=== PATIENT | male | born 1995 | race Caucasian/White ===

== ENCOUNTER 2017-07-10 07:49 | Emergency (ER) | payer BC, SELFPAY ==
[2017-07-10 07:51] VITALS: BP 146/86; PULSE 75; RESP 16; TEMP 36.4; O2SAT 100; BMI 19.2
[2017-07-10 08:13] LABS: Basophils % 0.5 % (0.1-2.0); Eosinophils # 0.2 K/mm3 (0.0-0.4); Eosinophils % 2.4 % (0.1-12.0); Hematocrit 48.8 % (42.0-52.0); Hemoglobin 16.1 g/dL (14.1-18.0); Lymphocytes # 2.1 K/mm3 (0.7-4.5); Lymphocytes % 31.7 K/mm3 (10-50); Mean Corpuscular HGB Conc 33.1 g/dL (31.8-35.4); Mean Corpuscular Volume 93.8 fl (80-94); Mean Platelet Volume 8.3 fl (7.4-10.4); Monocytes # 0.5 K/mm3 (0.1-1.0); Monocytes % 7.5 % (1.7-9.3); Neutrophils # 3.8 K/mm3 (1.8-7.8); Neutrophils % 57.9 % (37.0-80.0); Platelet Count 231 K/mm3 (142-424); Red Cell Distribution Width 12.3 % (11.5-17.5); White Blood Count 6.5 K/mm3 (4.8-10.8)
[2017-07-10 08:28] LABS: Alanine Aminotransferase 31 U/L (12-78); Albumin Level 4.3 gm/dL (3.4-5.0); Albumin/Globulin Ratio 1.2 (1.1-1.8); Alkaline Phosphatase 105 U/L (46-116); Amylase 61 U/L (25-125); Anion Gap 12.9 mEq/L (5-15); Aspartate Amino Transferase 24 U/L (15-37); Bilirubin,Total 0.5 mg/dL (0.2-1.0); Blood Urea Nitrogen 10 mg/dL (7-18); Calcium 8.8 mg/dL (8.5-10.1); Carbon Dioxide 29 mmol/L (21.0-32.0); Chloride 102 mmol/L (98-107); Creatinine Clearance Estimated 120 mL/min (0-300); Creatinine,Serum 0.91 mg/dL (0.70-1.30); Estimated Glomerular Filt Rate 102 ml/min (>60); GFR (African American) 124 ML/MIN (>60); Globulin 3.7 gm/dl (1.3-3.2); Glucose 107 mg/dL (74-106); Lipase 85 u/L (73-393); Potassium 3.9 mmoL/L (3.5-5.1); Sodium 140 mmol/L (136-145)
--- NOTE | 2017-07-10 08:49 | HMH.EDNVD ---
ED Disposition Clinical Impression: Gastroenteritis Disposition: Home, Self-Care Condition on Discharge: Good Instructions: DI for Diarrhea and Traveler's Diarrhea -- Adult Additional Instructions: Clear liquids to stay hydrated, Bentyl for cramping, Zofran for any vomiting, see MD of choice from list provided, one to three days, for recheck. Prescriptions: Dicyclomine HCl [Bentyl 10mg capsule] 10 mg PO Q8HP PRN #10 cap PRN Reason: Cramping Ondansetron [Zofran 4mg ODT] 4 mg PO TIDP PRN #10 tab.rapdis PRN Reason: nausea Referrals: Ute Weller APRN [Primary Care Provider] - Wilfredo Garcia MD [Staff Physician] - - Critical Care Critical Care Time: No Attestation: On 07/10/17, the high probability of a clinically significant, sudden or life threatening deterioration of the following system(s) required my full and direct attention, intervention and personal management. The time I documented below is in addition to time spent performing reported procedures but includes the following listed in this critical care notation. Medical Decision Making - [place] Inquiry Pt receiving controlled substance: No Vital Signs: 07/10/17 07:51 Temperature 97.6 F Temperature Source Oral Pulse Rate [Right Radial] 75 Respiratory Rate 16 Blood Pressure [Right Arm] 146/86 Blood Pressure Mean [Right Arm] 106 Blood Pressure Source [Right Arm] Automatic Cuff Blood Pressure Position [Right Arm] Sitting 02 Sat by Pulse Oximetry 100 Oxygen Delivery Method Room Air - Lab Data Lab Results 07/10/17 08:03: WBC 6.5, RBC 5.20, Hgb 16.1, Hct 48.8, MCV 93.8, MCH 31.0, MCHC 33.1, RDW 12.3, Plt Count 231, MPV 8.3, Neut % (Auto) 57.9, Lymph % (Auto) 31.7, [place] % (Auto) 7.5, Eos % (Auto) 2.4, Baso % (Auto) 0.5, Neut # (Auto) 3.8, Lymph # (Auto) 2.1, [place] # (Auto) 0.5, Eos # (Auto) 0.2, Baso # (Auto) 0.0 07/10/17 08:03: Sodium 140, Potassium 3.9, Chloride 102, Carbon Dioxide 29, Anion Gap 12.9, BUN 10, Creatinine 0.91, Estimated Creat Clear 120, Estimated GFR 102, Est GFR ( Amer) 124, Glucose 107 H, Calcium 8.8, Total Bilirubin 0.5, AST 24, ALT 31, Alkaline Phosphatase 105, Total Protein 8.0, Albumin 4.3, Globulin 3.7 H, Albumin/Globulin Ratio 1.2, Amylase 61, Lipase 85 Result diagrams: 07/10/17 08:03 07/10/17 08:03 Orders (Tests/Meds): ED MEDICATIONS Discontinued Medications Generic Name Dose Route Start Last Admin Trade Name Freq PRN Reason Stop Dose Admin Ondansetron HCl 4 mg 07/10/17 08:04 07/10/17 08:06 Zofran 4mg Odt SL 07/10/17 08:05 4 mg ONCE ONE Administration Nausea/Vomiting/Diarrhea HPI - General Chief complaint: Abdominal Pain Stated complaint: stomach pain vomiting diarrhea Time Seen by Provider: 07/10/17 08:15 Mode of Arrival: Ambulatory Limitations: No Limitations Description of Symptoms (Recalled from ER Triage Doc. by RN): n/v/d for three days accompanied by abdominal cramping. reports pain at a 6 or 7 at the most and describes pain as a cramping that in generalized across lower abdomen. denies dark stools or vomitus. - History of Present Illness HPI Narrative: Seen at an outside [facility] three days ago for congestion, Rx for Amoxicillin not filled, but congestion and mild fever are resolved; vomiting resolved; has a little diarrhea, nonbloody; no sick contacts. Taking PO well. No fever now. MD complaint: nausea, vomiting, diarrhea Onset (ago): day(s) Description of Vomiting: watery Description of Diarrhea: water Associated Abdominal Pain: No Quality: cramping Exacerbating factors: none - Related Data Previous Rx's Medication Instructions Recorded Dicyclomine HCl [Bentyl 10mg 10 mg PO Q8HP PRN #10 cap 07/10/17 capsule] Ondansetron [Zofran 4mg ODT] 4 mg PO TIDP PRN #10 tab.rapdis 07/10/17 Allergies Allergy/AdvReac Type Severity Reaction Status Date / Time carbinoxamine [From [facility]] Allergy Hives Verified 07/10/17 08:00 pseudoephedrine
--- NOTE | 2017-07-10 08:54 | ED_ITS ---
ED Disposition Clinical Impression: Gastroenteritis Disposition: Home, Self-Care Condition on Discharge: Good Instructions: DI for Diarrhea and Traveler's Diarrhea -- Adult Additional Instructions: Clear liquids to stay hydrated, Bentyl for cramping, Zofran for any vomiting, see MD of choice from list provided, one to three days, for recheck. Prescriptions: Dicyclomine HCl [Bentyl 10mg capsule] 10 mg PO Q8HP PRN #10 cap PRN Reason: Cramping Ondansetron [Zofran 4mg ODT] 4 mg PO TIDP PRN #10 tab.rapdis PRN Reason: nausea Referrals: Ute Weller APRN [Primary Care Provider] - Wilfredo Garcia MD [Staff Physician] - - Critical Care Critical Care Time: No Attestation: On 07/10/17, the high probability of a clinically significant, sudden or life threatening deterioration of the following system(s) required my full and direct attention, intervention and personal management. The time I documented below is in addition to time spent performing reported procedures but includes the following listed in this critical care notation. Medical Decision Making - [place] Inquiry Pt receiving controlled substance: No Vital Signs: 07/10/17 07:51 Temperature 97.6 F Temperature Source Oral Pulse Rate [Right Radial] 75 Respiratory Rate 16 Blood Pressure [Right Arm] 146/86 Blood Pressure Mean [Right Arm] 106 Blood Pressure Source [Right Arm] Automatic Cuff Blood Pressure Position [Right Arm] Sitting 02 Sat by Pulse Oximetry 100 Oxygen Delivery Method Room Air - Lab Data Lab Results 07/10/17 08:03: WBC 6.5, RBC 5.20, Hgb 16.1, Hct 48.8, MCV 93.8, MCH 31.0, MCHC 33.1, RDW 12.3, Plt Count 231, MPV 8.3, Neut % (Auto) 57.9, Lymph % (Auto) 31.7 , [place] % (Auto) 7.5, Eos % (Auto) 2.4, Baso % (Auto) 0.5, Neut # (Auto) 3.8, Lymph # (Auto) 2.1, [place] # (Auto) 0.5, Eos # (Auto) 0.2, Baso # (Auto) 0.0 07/10/17 08:03: Sodium 140, Potassium 3.9, Chloride 102, Carbon Dioxide 29, Anion Gap 12.9, BUN 10, Creatinine 0.91, Estimated Creat Clear 120, Estimated GFR 102, Est GFR ( Amer) 124, Glucose 107 H, Calcium 8.8, Total Bilirubin 0.5, AST 24, ALT 31, Alkaline Phosphatase 105, Total Protein 8.0, Albumin 4.3, Globulin 3.7 H, Albumin/Globulin Ratio 1.2, Amylase 61, Lipase 85 Result diagrams: 07/10/17 08:03 07/10/17 08:03 Orders (Tests/Meds): ED MEDICATIONS Discontinued Medications Generic Name Dose Route Start Last Admin Trade Name Freq PRN Reason Stop Dose Admin Ondansetron HCl 4 mg 07/10/17 08:04 07/10/17 08:06 Zofran 4mg Odt SL 07/10/17 08:05 4 mg ONCE ONE Administration Nausea/Vomiting/Diarrhea HPI - General Chief complaint: Abdominal Pain Stated complaint: stomach pain vomiting diarrhea Time Seen by Provider: 07/10/17 08:15 Mode of Arrival: Ambulatory Limitations: No Limitations Description of Symptoms (Recalled from ER Triage Doc. by RN): n/v/d for three days accompanied by abdominal cramping. reports pain at a 6 or 7 at the most and describes pain as a cramping that in generalized across lower abdomen. denies dark stools or vomitus. - History of Present Illness HPI Narrative: Seen at an outside [facility] three days ago for congestion, Rx for Amoxicillin not filled, but congestion and mild fever are resolved; vomiting resolved; has a little diarrhea, nonbloody; no sick contacts. Taking PO well. No fever now. complaint: na
[2017-07-10 09:08] VITALS: BP 121/67; PULSE 67; RESP 16; TEMP 36.9; O2SAT 98
== END 2017-07-10 09:10 | disposition home or self-care (01) ==
PROVIDERS: Emergency Medicine; Emergency Provider Emergency Medicine; PCP Nurse Practitioner Family
DX: K52.9 Noninfective gastroenteritis and colitis, unspecified (principal); F17.210 Nicotine dependence, cigarettes, uncomplicated; Z88.8 Allergy status to other drugs, medicaments and biological substances
CPT/HCPCS: 80053; 82150; 83690; 85025; 99282

== ENCOUNTER → 2021-03-19 19:57 | Outpatient (CLI) | payer OTHER, SELFPAY | PROVIDERS: Visit Provider Nurse Practitioner Family | DX: Z20.822 Contact with and (suspected) exposure to COVID-19 (principal) | CPT/HCPCS: C9803; U0003; U0005 ==

== ENCOUNTER 2021-03-26 06:50 | Emergency (ER) | payer OTHER, SELFPAY ==
[2021-03-26 06:52] VITALS: BP 138/85; PULSE 90; RESP 18; TEMP 36.8; O2SAT 98; BMI 19.2
--- NOTE | 2021-03-26 07:07 | XR_ITS ---
PROCEDURE: XR CHEST 2V CLINICAL HISTORY: Cough COMPARISON: No exams were available for comparison FINDINGS: The cardiomediastinal silhouette and pulmonary vascularity are within normal limits. There is hyperinflation with attenuation of the pulmonary vessels suggesting obstructive pulmonary disease. No lobar consolidation or collapse. No acute bony abnormalities. IMPRESSION: Hyperinflation which may be seen obstructive pulmonary disease such as COPD, asthma, or bronchitis. Dictated by: Horacio Martin MD 03/26/2021 07:47 Horacio Martin MD in [place] 03/26/2021 07:47
--- NOTE | 2021-03-26 07:18 | HMH.EDURI ---
ED Disposition Clinical Impression: Pharyngitis Qualifiers: Pharyngitis/tonsillitis etiology: unspecified etiology Qualified Code(s): J02.9 - Acute pharyngitis, unspecified Disposition: Home, Self-Care Condition on Discharge: Good Instructions: DI for Pharyngitis/Tonsillopharyngitis -- Adult Additional Instructions: fluids and use meds and see pcp for follow up Prescriptions: cephALEXin [cephALEXin 500mg capsule*] 500 mg PO TID #30 cap Transmission Status: Pending to [id number] Referrals: Provider,Referral, [Primary Care Provider] - - Critical Care Critical Care Time: No Attestation: On 03/26/21, the high probability of a clinically significant, sudden or life threatening deterioration of the following system(s) required my full and direct attention, intervention and personal management. The time I documented below is in addition to time spent performing reported procedures but includes the following listed in this critical care notation. Medical Decision Making - Medical Records Medical records reviewed: Yes: I reviewed the patient's medical records. - [place] Inquiry Pt receiving controlled substance: No Vital Signs: 03/26/21 06:52 Temperature 98.2 F Temperature Source Oral Pulse Rate [Right Radial] 90 Respiratory Rate 18 Blood Pressure [Right Arm] 138/85 Blood Pressure Mean [Right Arm] 102 Blood Pressure Source [Right Arm] Automatic Cuff Blood Pressure Position [Right Arm] Sitting 02 Sat by Pulse Oximetry 98 Oxygen Delivery Method Room Air - Lab Data Lab results reviewed: Yes: I reviewed the patient's lab results. Lab Results 03/26/21 07:10: Group A Strep Rapid Negative 03/26/21 07:10: SARS-CoV-2 (PCR) Not detected, Influenza A Untype (PCR) Not detected, Influenza Type B (PCR) Not detected 03/26/21 08:00: Monoscreen Negative Orders (Tests/Meds): ORDERS Category Date Time Status Strep Screen Confirmation Stat Micro 03/26/21 07:10 Received - Radiology Data #1 Image(s): Chest Image Reviewed: Yes I reviewed the patient's radiology image Preliminary Findings: Normal/NAD URI/Sore Throat HPI - General Chief Complaint: Upper Respiratory Infection Stated Complaint: sore throat,fever,fatigue,aches all over Time Seen by Provider: 03/26/21 07:18 Mode of Arrival: Ambulatory Source of Information: Patient, Medical Record Limitations: No Limitations Description of Symptoms (Recalled from ER Triage Doc. by RN): Pt reports sore throat, fevers, fatigue, and chills for about a week . Pt denies chest pain or SOA. He denies abd pain or N/V/D. - History of Present Illness HPI Narrative: sore throat with occ cough w/o rash over the last few days MD Complaint: sore throat Onset (ago): day(s) Duration: intermittent Severity: moderate Able to tolerate fluids by mouth: Yes Associated symptoms: denies other symptoms Treatments prior to arrival: none - Related Data Previous Rx's Medication Instructions Recorded ondansetron 8 mg disintegrating 8 mg PO Q8H PRN 4 Days #12 tab 03/19/21 tablet cephALEXin [cephALEXin 500mg 500 mg PO TID #30 cap 03/26/21 capsule*] Allergies Allergy/AdvReac Type Severity Reaction Status Date / Time carbinoxamine [From [facility]] Allergy Hives Verified 03/19/21 12:12 pseudoephedrine [From [facility]] Allergy Hives Verified 03/19/21 12:12 [facility] History - Hepatitis A Screen Drug use history?: No High risk sexual behaviors?: No History of sexually transmitted infection?: No Currently employed?: No Childcare worker?: No Do you have indoor plumbing?: Yes Do you have electricity?: Yes Attestation statement:: This patient has been screened for Hepatitis A risk factors. I have reviewed the patient's past medical history: Yes Other Surgeries: Yes: No Previous Surgery Amputation: No Fractures: No - Social History Smoking Status: Current every day smoker Tobacco Type: cigarettes # Packs/Day (cigarettes): 1 Alcohol Intake: ne
[2021-03-26 07:21] LABS: Coronavirus 19, PCR Not Detected (NotDetected); Influenza A, PCR Not Detected (NotDetected); Influenza B, PCR Not Detected (NotDetected)
[2021-03-26 07:34] LABS: Strep Scrn Group A (Rapid) Negative (Negative)
[2021-03-26 08:16] LABS: Monoscreen (Rapid) Negative (Negative)
[2021-03-26 09:27] VITALS: BP 137/67; PULSE 71; RESP 16; TEMP 36.6; O2SAT 98
== END 2021-03-26 09:29 | disposition home or self-care (01) ==
PROVIDERS: Emergency Provider Emergency Medicine
DX: J02.9 Acute pharyngitis, unspecified (principal); F17.210 Nicotine dependence, cigarettes, uncomplicated
CPT/HCPCS: 71046; 86318; 87430; 99283; C9803; U0003; U0005